=== PATIENT | female | born 1995 | race Caucasian/White ===

== ENCOUNTER → 2018-05-26 10:32 | Outpatient (CLI) | payer OTHER, MEDICAID, SELFPAY ==
[2018-05-26 12:35] LABS: Cholesterol 222 mg/dL (140-199); HDL Cholesterol 33 mg/dL (40-60); LDL Cholesterol Calculated 163 mg/dL (<100); Triglycerides 130 mg/dL (35-150)
== END ==
PROVIDERS: PCP Family Medicine; Visit Provider Family Medicine
DX: E78.5 Hyperlipidemia, unspecified (principal)
CPT/HCPCS: 36415; 80061

== ENCOUNTER → 2018-09-26 09:08 | Outpatient (CLI) | payer OTHER, MEDICAID, SELFPAY ==
[2018-09-26 10:39] LABS: Alanine Aminotransferase 31 IU/L (9-52); Albumin 4.2 g/dL (3.5-5.0); Albumin Globulin Ratio 1.2 (1.0-2.8); Alkaline Phosphatase 73 U/L (38-126); Aspartate Aminotransferase 31 IU/L (14-36); BUN Creatinine Ratio 13.8 (6-22); Bilirubin Total 0.3 mg/dL (0.2-1.3); Blood Urea Nitrogen 11 mg/dL (7-17); Calcium 9.4 mg/dL (8.4-10.2); Carbon Dioxide 25 mmol/L (22-32); Chloride 102 mmol/L (98-107); Cholesterol 149 mg/dL (140-199); Estimated Glomerular Filt Rate > 60.0 mL/min (>60); Globulin 3.6 g/dL (1.7-4.1); Glucose 83 mg/dL (70-100); HDL Cholesterol 31 mg/dL (40-60); HEMOLYSIS < 15 (0-50); LDL Cholesterol Calculated 97 mg/dL (<100); Potassium 4.3 mmol/L (3.4-5.1); Sodium 138 mmol/L (137-145); Total Protein 7.8 g/dL (6.3-8.2); Triglycerides 104 mg/dL (35-150)
== END ==
PROVIDERS: PCP Family Medicine; Visit Provider Family Medicine
DX: E78.00 Pure hypercholesterolemia, unspecified (principal); Z51.81 Encounter for therapeutic drug level monitoring; Z13.220 Encounter for screening for lipoid disorders
CPT/HCPCS: 36415; 80053; 80061

== ENCOUNTER → 2019-03-29 09:58 | Outpatient (CLI) | payer OTHER, MEDICAID, SELFPAY ==
[2019-03-29 10:59] LABS: Alanine Aminotransferase 28 IU/L (9-52); Albumin 4.3 g/dL (3.5-5.0); Albumin Globulin Ratio 1.2 (1.0-2.8); Alkaline Phosphatase 77 U/L (38-126); Aspartate Aminotransferase 32 IU/L (14-36); BUN Creatinine Ratio 14.3 (6-22); Bilirubin Total 0.5 mg/dL (0.2-1.3); Blood Urea Nitrogen 10 mg/dL (7-17); Calcium 9.5 mg/dL (8.4-10.2); Carbon Dioxide 25 mmol/L (22-32); Chloride 103 mmol/L (98-107); Cholesterol 162 mg/dL (140-199); Estimated Glomerular Filt Rate > 60.0 mL/min (>60); Globulin 3.7 g/dL (1.7-4.1); Glucose 82 mg/dL (70-100); HDL Cholesterol 34 mg/dL (40-60); HEMOLYSIS < 15 (0-50); LDL Cholesterol Calculated 104 mg/dL (<100); Potassium 4.2 mmol/L (3.4-5.1); Sodium 141 mmol/L (137-145); Triglycerides 118 mg/dL (35-150)
== END ==
PROVIDERS: PCP Family Medicine; Visit Provider Family Medicine
DX: E78.5 Hyperlipidemia, unspecified (principal)
CPT/HCPCS: 36415; 80053; 80061

== ENCOUNTER → 2019-04-17 16:00 | Outpatient (CLI) | payer OTHER, MEDICAID, SELFPAY | PROVIDERS: PCP Family Medicine; Visit Provider Physician Assistant | DX: J02.9 Acute pharyngitis, unspecified (principal) | CPT/HCPCS: 87070 ==

== ENCOUNTER → 2019-11-22 09:36 | Outpatient (CLI) | payer OTHER, MEDICAID, SELFPAY ==
[2019-11-22 10:36] LABS: Cholesterol 161 mg/dL (140-199); HDL Cholesterol 31 mg/dL (40-60); LDL Cholesterol Calculated 99 mg/dL (<100); Triglycerides 154 mg/dL (35-150)
[2019-11-22 11:07] LABS: TSH w/ Reflex to FT4 1.33 uIU/mL (0.47-4.68)
== END ==
PROVIDERS: PCP Nurse Practitioner Family; Referring Provider Nurse Practitioner Family; Visit Provider Nurse Practitioner Family
DX: E66.9 Obesity, unspecified (principal); E78.5 Hyperlipidemia, unspecified; R63.5 Abnormal weight gain
CPT/HCPCS: 36415; 80061; 84443

== ENCOUNTER → 2020-05-02 10:40 | Outpatient (CLI) | payer OTHER, MEDICAID, SELFPAY ==
[2020-05-02 11:40] LABS: Hematocrit 40.9 % (36-46); Hemoglobin 13.6 g/dL (12.0-16.0); Mean Corpuscular HGB Conc 33.2 % (30-36); Mean Corpuscular Hemoglobin 29.4 PG (26-34); Mean Corpuscular Volume 88.5 fL (80-100); Platelet Count 333 X10^3/uL (150-400); Red Blood Cell Count 4.62 X10^6/uL (4.0-5.2); Red Cell Distribution Width 13.2 % (11.6-14.8)
[2020-05-02 11:54] LABS: Alanine Aminotransferase 38 IU/L (<35); Albumin 4.2 g/dL (3.5-5.0); Albumin Globulin Ratio 1.2 (1.0-2.8); Alkaline Phosphatase 87 U/L (38-126); Aspartate Aminotransferase 41 IU/L (14-36); BUN Creatinine Ratio 16.2 (6-22); Bilirubin Total 0.7 mg/dL (0.2-1.3); Blood Urea Nitrogen 11 mg/dL (7-17); Calcium 9.1 mg/dL (8.4-10.2); Carbon Dioxide 25 mmol/L (22-32); Chloride 103 mmol/L (98-107); Estimated Glomerular Filt Rate > 60.0 mL/min (>60); Globulin 3.4 g/dL (1.7-4.1); Glucose 78 mg/dL (70-100); HEMOLYSIS < 15 (0-50); Potassium 3.8 mmol/L (3.4-5.1); Sodium 137 mmol/L (137-145); Total Protein 7.6 g/dL (6.3-8.2)
[2020-05-03 18:12] LABS: Deamidated Gliadin Ab IgA 2 units (0-19); Deamidated Gliadin Ab IgG 7 units (0-19); Immunoglobulin A,Qn 165 mg/dL (87-352); t-Transglutaminase IgA <2 U/mL (0-3)
== END ==
PROVIDERS: PCP Nurse Practitioner Family; Referring Provider Nurse Practitioner Family; Visit Provider Nurse Practitioner Family
DX: R19.7 Diarrhea, unspecified (principal)
CPT/HCPCS: 36415; 80053; 82784; 83516; 85027

== ENCOUNTER → 2020-05-06 12:03 | Outpatient (CLI) | payer OTHER, MEDICAID, SELFPAY ==
--- NOTE | 2020-05-06 12:04 | DI.US.S_ITS ---
PROCEDURE: US EXTREMITY NONVASC LOWER LT INDICATIONS: LEFT HIP LUMP TECHNIQUE: Real-time scanning was performed of the left hip , with image documentation. COMPARISON: None. FINDINGS: 1.7 x 1.0 x 1.7 cm echogenic solid soft tissue mass corresponding to the palpable abnormality. No vascularity. IMPRESSION: Possible soft tissue lipoma; however differential diagnosis would include both benign and malignant etiologies. If indicated, soft tissue MRI could be performed for further assessment. Dictated by: Elliott Mensah [facility] Interpreted: Dennys Atkins MD on 05/06/2020 at 17:38 Approved by: Dennys Atkins M.D. on 05/06/2020 at 18:12
== END ==
PROVIDERS: PCP Nurse Practitioner Family; Referring Provider Nurse Practitioner Family; Visit Provider Nurse Practitioner Family
DX: R22.2 Localized swelling, mass and lump, trunk (principal)
CPT/HCPCS: 76882

== ENCOUNTER → 2020-05-23 11:38 | Outpatient (CLI) | payer OTHER, MEDICAID, SELFPAY ==
[2020-05-23 12:57] LABS: Alanine Aminotransferase 35 IU/L (<35); Albumin 4.2 g/dL (3.5-5.0); Albumin Globulin Ratio 1.3 (1.0-2.8); Alkaline Phosphatase 93 U/L (38-126); Aspartate Aminotransferase 38 IU/L (14-36); Bilirubin Total 0.4 mg/dL (0.2-1.3); Bilirubin Unconjugated 0.3 mg/dL (0.0-1.1); Globulin 3.2 g/dL (1.7-4.1); HEMOLYSIS < 15 (0-50); Total Protein 7.4 g/dL (6.3-8.2)
[2020-05-26 06:35] LABS: Almond IgE <0.10 kU/L (Class 0); Cashew Nut IgE <0.10 kU/L (Class 0); Codfish Allergy IgE < 0.10 kU/L (Class 0); Egg White IgE <0.10 kU/L (Class 0); Hazelnut IgE <0.10 kU/L (Class 0); Milk IgE <0.10 kU/L (Class 0); Peanut IgE <0.10 kU/L (Class 0); Salmon Allergy IgE < 0.10 kU/L (Class 0); Scallop Allergy IgE < 0.10 kU/L (Class 0); Sesame seed Allergy IgE < 0.10 kU/L (Class 0); Shrimp IgE <0.10 kU/L (Class 0); Soybean IgE <0.10 kU/L (Class 0); Tuna Allergy IgE < 0.10 kU/L (Class 0); Walnut IgE <0.10 kU/L (Class 0); Wheat Allergy IgE < 0.10 kU/L (Class 0)
== END ==
PROVIDERS: PCP Nurse Practitioner Family; Referring Provider Nurse Practitioner Family; Visit Provider Nurse Practitioner Family
DX: R74.8 Abnormal levels of other serum enzymes (principal)
CPT/HCPCS: 36415; 80076; 86003

== ENCOUNTER → 2020-06-04 10:19 | Outpatient (CLI) | payer OTHER, MEDICAID, SELFPAY ==
--- NOTE | 2020-06-04 10:20 | DI.US.S_ITS ---
PROCEDURE: US ABDOMEN COMPLETE INDICATIONS: ELEVATED LIVER ENZYMES TECHNIQUE: Real-time scanning was performed of the abdominal and retroperitoneal organs, with image documentation. COMPARISON: None. FINDINGS: Liver: Numerous target like masses can be seen involving the liver. The largest measure as follows: Right posterior lobe: 4.9 x 4 x 8.2 cm Right posterior lobe: 2.8 x 3.4 x 3.3 cm Left lateral lobe: 2.6 x 2 x 2 x 2 cm. The liver overall demonstrates normal size. The main portal vein is normal in size at 1.5 cm and is patent. Gallbladder: No findings of gallstones or sludge are seen. The gallbladder wall is not thickened, measuring 3 mm or less. No specific pericholecystic fluid is seen. The sonographic Juarez sign is negative. Biliary ducts: Intrahepatic bile ducts are non-dilated. Extrahepatic bile duct caliber measures 5 mm. Normal is 6-7 mm or less in diameter, or 10 mm or less post-cholecystectomy. Pancreas: Visualized portions of the pancreas are sonographically normal. Spleen: Spleen is normal in size and homogeneous in echotexture. Kidneys: Kidneys are normal in size and echotexture. Right kidney measures 11.9 cm long; left kidney measures 12.3 cm long. No hydronephrosis or nephrolithiasis. No solid masses. The renal cortex measures within normal limits for thickness. Aorta: Visualized aorta is normal in caliber at less than 3 cm. Iliacs: Proximal common iliac arteries are normal in caliber at less than 2.5 cm. IVC: Intrahepatic inferior vena cava is patent. Miscellaneous: No free abdominal fluid. IMPRESSION: Target like masses can be seen involving the liver. These are typically seen in patients with metastatic disease. However, in the seen patient, the clinical significance of these is uncertain. Please correlate with a prior history of neoplasm. For further evaluation, a dedicated liver MRI (without and with contrast) is suggested (assuming that there is no contraindication to MRI). Dictated by: Bernardino Galvez M.D. on 06/04/2020 at 11:56 Approved by: Bernardino Galvez M.D. on 06/04/2020 at 11:58
[2020-06-05 09:36] LABS: HBsAg Screen Negative (Negative); Hepatitis A Antibody IgM Negative (Negative); Hepatitis B Core Antibody IgM Negative (Negative); Hepatitis C Antibody <0.1 s/co ratio (0.0-0.9)
[2020-06-06 10:12] LABS: ANA Screen, IFA Negative (.)
[2020-06-08 16:13] LABS: Smooth Muscle Antibody 5 Units (0-19)
== END ==
PROVIDERS: PCP Nurse Practitioner Family; Referring Provider Nurse Practitioner Family; Visit Provider Nurse Practitioner Family
DX: R74.8 Abnormal levels of other serum enzymes (principal); K76.9 Liver disease, unspecified
CPT/HCPCS: 36415; 76700; 80074; 83516; 86038

== ENCOUNTER → 2020-06-13 12:10 | Outpatient (CLI) | payer OTHER, MEDICAID, SELFPAY ==
[2020-06-13 13:50] LABS: Carcinoembryonic Antigen 2.1 ng/mL (0.1-3.0)
[2020-06-14 06:46] LABS: Alpha Fetoprotein 1.7 ng/mL (0.0-8.3); Cancer (Carbohydrate) Ag 19-9 10 U/mL (0-35)
== END ==
PROVIDERS: PCP Nurse Practitioner Family; Referring Provider Nurse Practitioner Family; Visit Provider Nurse Practitioner Family
DX: K76.9 Liver disease, unspecified (principal)
CPT/HCPCS: 36415; 82105; 82378; 86301

== ENCOUNTER → 2020-06-19 09:45 | Outpatient (CLI) | payer OTHER, MEDICAID, SELFPAY ==
--- NOTE | 2020-06-19 09:46 | DI.MRI.S_ITS ---
PROCEDURE: MR ABDOMEN WO/W CON INDICATIONS: liver lesions, abnormal US TECHNIQUE: Coronal HASTE, axial 2D FLASH in- and [id number]; axial breath-hold T2 FSE. Dynamic axial VIBE during the administration of contrast; post-contrast coronal VIBE or 2D FLASH with fat saturation from the hepatic dome to the iliac crests. Optional diffusion weighted imaging and ADC may be performed. COMPARISON: [facility], US, US ABDOMEN COMPLETE, 06/04/2020, 10:35. FINDINGS: Image quality: Excellent. Lung bases: No basal pleural effusions. Heart size is normal. Solid organs: Multiple oval slightly lobulated T2 hyperintense mass lesions are demonstrated throughout the right and left hepatic lobes these include a metals sales representative mass anteriorly in segment 8 measuring up to 4.2 x 4.0 cm. The mass lesions demonstrate hypervascular enhancement following contrast administration with persistent hypervascularity on delayed images. The exception is a mass in the posterior right hepatic lobe primarily in segment 7 which demonstrates a peripheral thin T2 hyperintense rim with heterogeneous predominantly T2 hypointense signal internally. This measures up to 5.8 x 5.2 cm in transverse dimension. Following contrast administration, this demonstrates hypervascular internal enhancement on the arterial phase with internal washout on the portal venous and delayed phases. There is an enhancing capsule on the portal venous and delayed phases. Small linear filling defects are demonstrated within the right portal vein suggestive of partial thrombosis. Gallbladder appears within normal limits without gallstones. Biliary system is non dilated. Pancreas is normal in morphology. Spleen is normal in size and enhancement. No adrenal nodules. Both kidneys demonstrate normal size and enhancement, without hydronephrosis. Nodes and vessels: No retroperitoneal or mesenteric adenopathy by size criteria. Aorta and inferior vena cava are normal in size. Bowel and peritoneum: Visualized bowel loops are normal in caliber. No free fluid. Bones and soft tissues: No ventral hernias. Bone marrow is normal in overall signal. IMPRESSION: 1. Multiple hepatic mass lesions demonstrated throughout the right and left lobes. The majority demonstrate T2 hyperintensity with hypervascular enhancement which persist on delayed images. Given patient's age, the findings likely represent multiple hepatic adenomas possibly related to oral contraceptive use. The differential includes hemangiomas or focal nodular hyperplasia although the imaging appearance is less typical. Correlation is recommended with clinical history. 2. Large mass in segment 7 demonstrates heterogeneous hypointense signal internally on T2 as well as washout on portal venous and delayed phases following contrast administration with an enhancing pseudocapsule. The differential includes malignant transformation of a hepatic adenoma to hepatocellular carcinoma versus sequelae of an infarcted adenoma given suspected thrombus within the right portal vein. The mass is amenable to percutaneous imaging guided biopsy. 3. Small linear filling defects within the right portal vein suggestive of nonocclusive thrombus. Dictated by: John Do M.D. on 06/19/2020 at 10:38 Approved by: John Do M.D. on 06/19/2020 at 11:05
== END ==
PROVIDERS: PCP Nurse Practitioner Family; Referring Provider Nurse Practitioner Family; Visit Provider Nurse Practitioner Family
DX: K76.9 Liver disease, unspecified (principal); R93.89 Abnormal findings on diagnostic imaging of other specified body structures
CPT/HCPCS: 74183

== ENCOUNTER → 2020-08-01 11:25 | Outpatient (CLI) | payer OTHER, MEDICAID, SELFPAY ==
[2020-08-01 12:06] LABS: Hematocrit 41.9 % (36-46); Hemoglobin 13.7 g/dL (12.0-16.0); Mean Corpuscular HGB Conc 32.7 % (30-36); Mean Corpuscular Hemoglobin 28.7 PG (26-34); Mean Corpuscular Volume 87.8 fL (80-100); Platelet Count 279 X10^3/uL (150-400); Red Blood Cell Count 4.78 X10^6/uL (4.0-5.2); Red Cell Distribution Width 13.2 % (11.6-14.8); White Blood Cell Count 6.6 X10^3/uL (4.5-11.0)
[2020-08-01 12:44] LABS: Alanine Aminotransferase 99 IU/L (<35); Albumin 4.6 g/dL (3.5-5.0); Albumin Globulin Ratio 1.5 (1.0-2.8); Alkaline Phosphatase 109 U/L (38-126); Aspartate Aminotransferase 65 IU/L (14-36); BUN Creatinine Ratio 18.9 (6-22); Bilirubin Total 0.7 mg/dL (0.2-1.3); Blood Urea Nitrogen 14 mg/dL (7-17); Calcium 9.7 mg/dL (8.4-10.2); Carbon Dioxide 28 mmol/L (22-32); Chloride 103 mmol/L (98-107); Cholesterol 142 mg/dL (140-199); Estimated Glomerular Filt Rate > 60.0 mL/min (>60); Glucose 84 mg/dL (70-100); HDL Cholesterol 38 mg/dL (40-60); HEMOLYSIS < 15 (0-50); LDL Cholesterol Calculated 89 mg/dL (<100); Potassium 4.2 mmol/L (3.4-5.1); Sodium 139 mmol/L (137-145); Total Protein 7.6 g/dL (6.3-8.2); Triglycerides 77 mg/dL (35-150)
== END ==
PROVIDERS: PCP Nurse Practitioner Family; Referring Provider Nurse Practitioner Family; Visit Provider Nurse Practitioner Family
DX: Z00.00 Encounter for general adult medical examination without abnormal findings (principal); E78.5 Hyperlipidemia, unspecified
CPT/HCPCS: 36415; 80053; 80061; 85027

== ENCOUNTER → 2020-08-24 14:09 | Outpatient (CLI) | payer OTHER, MEDICAID, SELFPAY ==
[2020-08-24 15:54] LABS: COVID19 -Nasal RAPID Negative (Negative)
== END ==
PROVIDERS: PCP Nurse Practitioner Family; Visit Provider Physician Assistant
DX: Z20.822 Contact with and (suspected) exposure to COVID-19 (principal)
CPT/HCPCS: 87635

== ENCOUNTER → 2020-11-15 17:32 | Outpatient (CLI) | payer OTHER, MEDICAID, SELFPAY ==
--- NOTE | 2020-11-15 17:33 | DI.MRI.S_ITS ---
PROCEDURE: MR ABDOMEN WO CON INDICATIONS: monitor liver lesions TECHNIQUE: Coronal and axial HASTE, axial 2-D FLASH in- and [id number], axial Higgins, restricted diffusion hepatic dome to the iliac crests. No IV contrast administered. Patient reports allergy to gadolinium. COMPARISON: [facility], MR, MR ABDOMEN WO/W CON, 06/19/2020, 10:04. [facility], US, US ABDOMEN COMPLETE, 06/04/2020, 10:35. FINDINGS: Image quality: Excellent. Solid organs: Liver is normal in overall size. Several mildly T2 hyperintense hepatic lesions. No restricted diffusion, intrinsic T1 hypointensity. For example: Segment 4A at the dome measuring 3.2 x 2.3 cm, (04/01), previously 4.4 x 3.4 cm on 06/19/2020. Segment 7 measuring 2.6 x 1.8 cm, (04/12), previously 3.3 x 3.1 cm. Segment 6 measuring 1.4 x 1.2 cm, (04/24), previously 1.9 x 1.7 cm. No new lesion seen. Gallbladder is decompressed. Biliary system is non dilated. Pancreas is normal in morphology. Spleen is normal in size. No adrenal nodule. Both kidneys are normal in size, without hydronephrosis. Nodes and vessels: No retroperitoneal or mesenteric adenopathy by size criteria. Aorta and inferior vena cava are normal in size. Bowel and peritoneum: Unenhanced bowel loops are normal in caliber. No free fluid. Lung bases: No basal pleural effusions. Heart size is normal. Bones and soft tissues: No ventral hernias. Bone marrow is of normal overall signal. IMPRESSION: 1. Several mildly T2 hyperintense hepatic lesions demonstrate interval decrease in size compared to May 2020. Differential diagnosis remains broad for these lesions and these could represent adenomas. No new lesion seen. 2. No biliary ductal dilatation. No free fluid. Dictated by: Fadi Gil M.D. on 11/18/2020 at 8:38 Approved by: Fadi Gil M.D. on 11/18/2020 at 8:55
== END ==
PROVIDERS: PCP Nurse Practitioner Family; Referring Provider Nurse Practitioner Family; Visit Provider Nurse Practitioner Family
DX: K76.9 Liver disease, unspecified (principal)
CPT/HCPCS: 74181

== ENCOUNTER → 2020-11-18 15:29 | Outpatient (CLI) | payer OTHER, MEDICAID, SELFPAY ==
[2020-11-18 16:41] LABS: Alanine Aminotransferase 25 IU/L (<35); Albumin 4.4 g/dL (3.5-5.0); Albumin Globulin Ratio 1.4 (1.0-2.8); Alkaline Phosphatase 85 U/L (38-126); Aspartate Aminotransferase 32 IU/L (14-36); BUN Creatinine Ratio 16.1 (6-22); Bilirubin Total 0.4 mg/dL (0.2-1.3); Bilirubin Unconjugated 0.3 mg/dL (0.0-1.1); Blood Urea Nitrogen 10 mg/dL (7-17); Carbon Dioxide 27 mmol/L (22-32); Chloride 103 mmol/L (98-107); Estimated Glomerular Filt Rate > 60.0 mL/min (>60); Globulin 3.1 g/dL (1.7-4.1); Glucose 85 mg/dL (70-100); HEMOLYSIS 23 (0-50); Sodium 140 mmol/L (137-145); Total Protein 7.5 g/dL (6.3-8.2)
[2020-11-18 17:09] LABS: TSH w/ Reflex to FT4 1.79 uIU/mL (0.47-4.68)
== END ==
PROVIDERS: PCP Nurse Practitioner Family; Referring Provider Nurse Practitioner Family; Visit Provider Nurse Practitioner Family
DX: R16.0 Hepatomegaly, not elsewhere classified (principal); R63.4 Abnormal weight loss
CPT/HCPCS: 36415; 80053; 80076; 84443

== ENCOUNTER → 2020-12-16 11:47 | Outpatient (CLI) | payer OTHER, MEDICAID, SELFPAY ==
[2020-12-16 14:57] LABS: HEMOLYSIS < 15 (0-50); Iron 70 ug/dL (37-170)
[2020-12-16 14:59] LABS: Cholesterol 211 mg/dL (140-199); HDL Cholesterol 41 mg/dL (40-60); LDL Cholesterol Calculated 160 mg/dL (<100); Triglycerides 48 mg/dL (35-150)
[2020-12-16 15:09] LABS: Percent Iron Saturation 18 % (15-50); Total Iron Binding Capacity 398 ug/dL (265-497); Transferrin 301 mg/dL (206-381)
[2020-12-16 15:34] LABS: Ferritin 12 ng/mL (6-137)
[2020-12-16 17:12] LABS: Follicle Stimulating Hormone 5.94 mIU/mL
[2020-12-19 08:54] LABS: Percent Free Testosterone 2.84 % (0.50-2.80); Testosterone Free 0.94 ng/dL (0.10-0.85); Testosterone Total 33.2 ng/dL (10.0-55.0)
[2020-12-24 12:33] LABS: Estrogen 124 pg/mL (.)
== END ==
PROVIDERS: PCP Nurse Practitioner Family; Referring Provider Nurse Practitioner Family; Visit Provider Nurse Practitioner Family
DX: L65.9 Nonscarring hair loss, unspecified (principal); L68.9 Hypertrichosis, unspecified; L70.0 Acne vulgaris; Z68.30 Body mass index [BMI] 30.0-30.9, adult
CPT/HCPCS: 36415; 80061; 82672; 82728; 83001; 83002; 83540; 83550; 84402; 84403

== ENCOUNTER → 2021-01-06 12:05 | Outpatient (CLI) | payer OTHER, MEDICAID, SELFPAY ==
--- NOTE | 2021-01-06 12:06 | DI.US.S_ITS ---
PROCEDURE: US PELVIC COMPLETE INDICATIONS: possible PCOS TECHNIQUE: Real-time scanning was performed of the pelvic organs, with image documentation. Additional endovaginal scanning was necessary due to incomplete visualization of the adnexal and endometrial structures by transabdominal scanning. COMPARISON: None. FINDINGS: Uterus: Uterus is normal in size at 2.7 x 4.0 x 3.8 cm. The endometrium measures 2.0 mm in combined thickness. IUD is centrally positioned. Ovaries: The ovaries appear normal in overall volume measuring 2.0 x 4.2 x 1.8 cm on the right and 3.3 x 2.3 x 1.9 cm left. There is no suspicion for presence of ovarian torsion. Note is made of numerous small follicular cysts consistent with the stated suspected clinical history. Other: No pathologic free abdominal or pelvic fluid. IMPRESSION: Findings consistent with polycystic ovarian syndrome bilaterally. No sign of ovarian torsion. Normal appearing uterus with centrally positioned IUD as expected. Dictated by: Tommie Romero M.D. on 01/07/2021 at 16:16 Approved by: Tommie Romero M.D. on 01/07/2021 at 16:18
--- NOTE | 2021-01-06 12:06 | DI.US.S_ITS ---
LIMITED ULTRASOUND OF LEFT BREAST AND AXILLA: 01/06/2021 CLINICAL: Left breast pain. No prior exams were available for comparison. Color flow and real-time ultrasound of the left breast four quadrants and axilla regions were performed. Vargas scale images of the real-time examination were reviewed. No significant abnormalities were seen sonographically in the left axilla or in the region of pain. No abnormality seen screening the breast with ultrasound. IMPRESSION: NEGATIVE There is no sonographic evidence of malignancy. Return to annual mammogram screening schedule is recommended, usually to commence at age 40. Exam findings were conveyed to the patient. Patient is advised to monitor for significant change. Clinical follow-up as needed. This exam was interpreted at Station ID: [id number]. Electronically Signed By: Fadi Gil M.D. [facility] [place]/:01/06/2021 12:57:21 letter sent: Normal Exam Ultrasound BI-RADS: 1 Negative
== END ==
PROVIDERS: PCP Nurse Practitioner Family; Referring Provider Nurse Practitioner Family; Visit Provider Nurse Practitioner Family
DX: N64.4 Mastodynia (principal); N83.02 Follicular cyst of left ovary; N83.01 Follicular cyst of right ovary; R23.4 Changes in skin texture; L65.9 Nonscarring hair loss, unspecified; L68.9 Hypertrichosis, unspecified; L70.0 Acne vulgaris; Z97.5 Presence of (intrauterine) contraceptive device
CPT/HCPCS: 76642; 76830; 76856

== ENCOUNTER → 2021-01-28 10:38 | Outpatient (CLI) | payer OTHER, MEDICAID, SELFPAY ==
[2021-01-28 12:10] LABS: C-Reactive Protein Quant 1.9 mg/dL (<1.0)
[2021-01-28 12:12] LABS: Erythrocyte Sedimentation Rate 9 MM/HR (0-20)
[2021-01-29 17:45] LABS: ANA Screen, IFA Negative (.)
== END ==
PROVIDERS: PCP Nurse Practitioner Family; Referring Provider Nurse Practitioner Family; Visit Provider Nurse Practitioner Family
DX: R63.4 Abnormal weight loss (principal)
CPT/HCPCS: 36415; 85651; 86038; 86140

== ENCOUNTER → 2021-02-28 15:28 | Outpatient (CLI) | payer OTHER, MEDICAID, SELFPAY ==
[2021-02-28 16:46] LABS: HEMOLYSIS < 15 (0-50); Iron 49 ug/dL (37-170)
[2021-02-28 16:50] LABS: Alanine Aminotransferase 24 IU/L (<35); Albumin 4.6 g/dL (3.5-5.0); Albumin Globulin Ratio 1.4 (1.0-2.8); Alkaline Phosphatase 85 U/L (38-126); Aspartate Aminotransferase 30 IU/L (14-36); BUN Creatinine Ratio 23.3 (6-22); Bilirubin Total 0.4 mg/dL (0.2-1.3); Blood Urea Nitrogen 14 mg/dL (7-17); C-Reactive Protein Quant 0.5 mg/dL (<1.0); Calcium 9.9 mg/dL (8.4-10.2); Carbon Dioxide 28 mmol/L (22-32); Chloride 102 mmol/L (98-107); Cholesterol 144 mg/dL (140-199); Estimated Glomerular Filt Rate > 60.0 mL/min (>60); Globulin 3.3 g/dL (1.7-4.1); Glucose 82 mg/dL (70-100); HDL Cholesterol 41 mg/dL (40-60); HEMOLYSIS < 15 (0-50); LDL Cholesterol Calculated 86 mg/dL (<100); Potassium 3.7 mmol/L (3.4-5.1); Sodium 140 mmol/L (137-145); Total Protein 7.9 g/dL (6.3-8.2); Triglycerides 86 mg/dL (35-150)
[2021-02-28 16:56] LABS: Percent Iron Saturation 14 % (15-50); Total Iron Binding Capacity 354 ug/dL (265-497); Transferrin 251 mg/dL (206-381)
[2021-02-28 17:23] LABS: Ferritin 12 ng/mL (6-137)
== END ==
PROVIDERS: PCP Nurse Practitioner Family; Referring Provider Nurse Practitioner Family; Visit Provider Nurse Practitioner Family
DX: E61.1 Iron deficiency (principal); Z00.00 Encounter for general adult medical examination without abnormal findings; E78.01 Familial hypercholesterolemia; R79.82 Elevated C-reactive protein (CRP); K76.9 Liver disease, unspecified
CPT/HCPCS: 36415; 80053; 80061; 82728; 83540; 83550; 86140

== ENCOUNTER → 2021-05-14 12:32 | Outpatient (CLI) | payer OTHER, MEDICAID, SELFPAY ==
[2021-05-14 13:43] LABS: Glucose 76 mg/dL (70-100)
[2021-05-14 17:59] LABS: Vitamin D 25 Hydroxy (D3) 42.2 ng/mL (30.0-100.0)
[2021-05-15 06:40] LABS: Insulin Level Total 3.6 uIU/mL (2.6-24.9)
== END ==
PROVIDERS: PCP Nurse Practitioner Family; Referring Provider Specialist; Visit Provider Specialist
DX: E28.2 Polycystic ovarian syndrome (principal); L65.9 Nonscarring hair loss, unspecified
CPT/HCPCS: 36415; 82306; 82947; 83525

== ENCOUNTER → 2021-09-01 12:16 | Outpatient (CLI) | payer OTHER, MEDICAID, SELFPAY ==
[2021-09-01 12:43] LABS: Hematocrit 41.6 % (36-46); Mean Corpuscular HGB Conc 33.7 % (30-36); Mean Corpuscular Hemoglobin 29.9 PG (26-34); Mean Corpuscular Volume 88.8 fL (80-100); Platelet Count 252 X10^3/uL (150-400); Red Blood Cell Count 4.69 X10^6/uL (4.0-5.2); Red Cell Distribution Width 13.6 % (11.6-14.8)
[2021-09-01 14:01] LABS: HEMOLYSIS < 15 (0-50); Iron 105 ug/dL (37-170)
[2021-09-01 14:07] LABS: Alanine Aminotransferase 19 IU/L (<35); Albumin 4.6 g/dL (3.5-5.0); Albumin Globulin Ratio 1.4 (1.0-2.8); Alkaline Phosphatase 80 U/L (38-126); Aspartate Aminotransferase 26 IU/L (14-36); BUN Creatinine Ratio 14.5 (6-22); Bilirubin Total 0.8 mg/dL (0.2-1.3); Blood Urea Nitrogen 9 mg/dL (7-17); Calcium 9.8 mg/dL (8.4-10.2); Carbon Dioxide 28 mmol/L (22-32); Chloride 103 mmol/L (98-107); Cholesterol 134 mg/dL (140-199); Estimated Glomerular Filt Rate > 60.0 mL/min (>60); Globulin 3.2 g/dL (1.7-4.1); Glucose 82 mg/dL (70-100); HDL Cholesterol 43 mg/dL (40-60); HEMOLYSIS < 15 (0-50); LDL Cholesterol Calculated 81 mg/dL (<100); Sodium 139 mmol/L (137-145); Total Protein 7.8 g/dL (6.3-8.2); Triglycerides 52 mg/dL (35-150)
[2021-09-01 14:16] LABS: Percent Iron Saturation 29 % (15-50); Total Iron Binding Capacity 363 ug/dL (265-497); Transferrin 269 mg/dL (206-381)
[2021-09-01 14:38] LABS: Ferritin 19 ng/mL (6-137)
== END ==
PROVIDERS: PCP Nurse Practitioner Family; Referring Provider Nurse Practitioner Family; Visit Provider Nurse Practitioner Family
DX: E28.2 Polycystic ovarian syndrome (principal); E78.5 Hyperlipidemia, unspecified; K76.9 Liver disease, unspecified; Z13.6 Encounter for screening for cardiovascular disorders; Z00.00 Encounter for general adult medical examination without abnormal findings
CPT/HCPCS: 36415; 80053; 80061; 82728; 83540; 83550; 85027

== ENCOUNTER → 2021-09-25 17:44 | Outpatient (CLI) | payer OTHER, MEDICAID, SELFPAY ==
--- NOTE | 2021-09-25 17:48 | DI.MRI.S_ITS ---
PROCEDURE: MR ABDOMEN WO CON INDICATIONS: monitoring, liver disease, unspecified TECHNIQUE: Coronal and axial HASTE through the abdomen, axial 2-D FLASH in- and [id number], Higgins vibe noncontrast T1, and restricted diffusion sequences. No IV contrast was administered due to the reported history of gadolinium allergy. COMPARISON: [facility], MR, MR ABDOMEN WO/W CON, 06/19/2020, 10:04. [facility], MR, MR ABDOMEN WO CON, 11/15/2020, 17:40. FINDINGS: Image quality: Excellent. Abdominal organs: Liver is normal in size. There are multiple (greater than 4) liver lesions. These demonstrate mild T2 hyperintense signal and no restricted diffusion. For example: -segment 4A at the dome 1.8 x 1.4 cm, (4/6), previously 3.2 x 2.3 cm, and more remotely 4.4 x 3.4 cm on 06/19/2020. -segment 7 measuring 2.2 x 1.2 cm, (4/10), previously 2.6 x 1.8 cm, and more remotely 3.3 x 3.1 cm. -segment 6 measuring 1.1 x 1 cm, (4/60), previously 1.4 x 1.2 cm, and more remotely 1.9 x 1.7 cm. No new lesions identified. Gallbladder is decompressed. No intra or extrahepatic biliary ductal dilatation demonstrated. The pancreatic duct is not dilated. No pancreatic signal abnormality identified. Spleen is normal in size. No adrenal nodules. Both kidneys are normal in size, without hydronephrosis. Nodes and vessels: No retroperitoneal or mesenteric adenopathy by size criteria. Aorta and inferior vena cava are normal in size. Bowel and peritoneum: Unenhanced bowel loops are normal in caliber. No free fluid. Lung bases: No basal pleural effusions. Heart size is normal. Bones and soft tissues: No ventral hernias. Bone marrow is of normal overall signal. IMPRESSION: Exam is somewhat limited in the absence of IV contrast. 1. Continued interval decrease in size in the hepatic lesions. No new lesions identified. 2. No biliary or pancreatic ductal dilatation. 3. No ascites. Dictated by: Fadi Gil M.D. on 09/26/2021 at 8:50 Approved by: Fadi Gil M.D. on 09/26/2021 at 9:02
== END ==
PROVIDERS: PCP Nurse Practitioner Family; Referring Provider Nurse Practitioner Family; Visit Provider Nurse Practitioner Family
DX: K76.9 Liver disease, unspecified (principal)
CPT/HCPCS: 74181

== ENCOUNTER → 2022-09-08 11:37 | Outpatient (CLI) | payer OTHER, MEDICAID, SELFPAY ==
[2022-09-08 12:03] LABS: Add Manual Diff / Slide Review NO; Basophils Absolute Auto 0 /uL (0-100); Basophils Percent Auto 0.6 % (0-2); Eosinophils Absolute Auto 100 /uL (0-450); Eosinophils Percent Auto 1.8 % (2-4); Hematocrit 40.1 % (36-46); Hemoglobin 13.6 g/dL (12.0-16.0); Lymphocytes Absolute Auto 1900 /uL (1100-4500); Lymphocytes Percent Auto 31.2 % (25-40); Mean Corpuscular HGB Conc 33.8 % (30-36); Mean Corpuscular Hemoglobin 30.1 PG (26-34); Mean Corpuscular Volume 89.1 fL (80-100); Monocytes Absolute Auto 500 /uL (0-900); Monocytes Percent Auto 8.8 % (3-14); Neutrophils Absolute Auto 3500 /uL (1500-7000); Neutrophils Percent Auto 57.6 % (50-75); Platelet Count 272 X10^3/uL (150-400); Red Blood Cell Count 4.51 X10^6/uL (4.0-5.2); Red Cell Distribution Width 13.6 % (11.6-14.8)
[2022-09-08 12:19] LABS: Alanine Aminotransferase 18 IU/L (<35); Albumin 4.6 g/dL (3.5-5.0); Albumin Globulin Ratio 1.3 (1.0-2.8); Alkaline Phosphatase 62 U/L (38-126); Aspartate Aminotransferase 27 IU/L (14-36); BUN Creatinine Ratio 17.7 (6-22); Bilirubin Total 0.9 mg/dL (0.2-1.3); Blood Urea Nitrogen 11 mg/dL (7-17); Calcium 9.1 mg/dL (8.4-10.2); Carbon Dioxide 26 mmol/L (22-32); Chloride 102 mmol/L (98-107); Cholesterol 187 mg/dL (140-199); Estimated Glomerular Filt Rate > 60 mL/min (>60); Globulin 3.5 g/dL (1.7-4.1); Glucose 79 mg/dL (70-100); HDL Cholesterol 48 mg/dL (40-60); HEMOLYSIS < 15 (0-50); LDL Cholesterol Calculated 131 mg/dL (<100); Potassium 3.6 mmol/L (3.4-5.1); Sodium 139 mmol/L (137-145); Total Protein 8.1 g/dL (6.3-8.2); Triglycerides 42 mg/dL (35-150)
[2022-09-08 12:51] LABS: TSH w/ Reflex to FT4 0.99 uIU/mL (0.47-4.68)
== END ==
PROVIDERS: PCP Registered Nurse Diabetes Educator; Referring Provider Registered Nurse Diabetes Educator; Visit Provider Registered Nurse Diabetes Educator
DX: E28.2 Polycystic ovarian syndrome (principal); E78.01 Familial hypercholesterolemia; K76.9 Liver disease, unspecified; R74.8 Abnormal levels of other serum enzymes
CPT/HCPCS: 80053; 80061; 84443; 85025

== ENCOUNTER → 2024-04-21 12:55 | Outpatient (CLI) | payer OTHER, SELFPAY ==
[2024-04-21 15:01] LABS: Hematocrit 40.9 % (36-46); Hemoglobin 14.1 g/dL (12.0-16.0); Mean Corpuscular HGB Conc 34.4 % (30-36); Mean Corpuscular Hemoglobin 30.3 PG (26-34); Mean Corpuscular Volume 88.2 fL (80-100); Platelet Count 373 X10^3/uL (150-400); Red Blood Cell Count 4.64 X10^6/uL (4.0-5.2); Red Cell Distribution Width 13.3 % (11.6-14.8); White Blood Cell Count 5.8 X10^3/uL (4.5-11.0)
[2024-04-21 15:19] LABS: Alanine Aminotransferase 21 IU/L (<35); Albumin 4.4 g/dL (3.5-5.0); Albumin Globulin Ratio 1.3 (1.0-2.8); Alkaline Phosphatase 56 U/L (38-126); Aspartate Aminotransferase 30 IU/L (14-36); BUN Creatinine Ratio 17.2 (6-22); Bilirubin Total 0.8 mg/dL (0.2-1.3); Blood Urea Nitrogen 11 mg/dL (7-17); Calcium 9.5 mg/dL (8.4-10.2); Carbon Dioxide 27 mmol/L (22-32); Chloride 103 mmol/L (98-107); Cholesterol 186 mg/dL (140-199); Estimated Glomerular Filt Rate > 60 mL/min (>60); Globulin 3.3 g/dL (1.7-4.1); Glucose 78 mg/dL (70-100); HDL Cholesterol 47 mg/dL (40-60); HEMOLYSIS < 15 (0-50); LDL Cholesterol Calculated 130 mg/dL (<100); Sodium 137 mmol/L (137-145); Total Protein 7.7 g/dL (6.3-8.2); Triglycerides 45 mg/dL (35-150)
[2024-04-21 15:47] LABS: TSH w/ Reflex to FT4 0.89 uIU/mL (0.47-4.68)
== END ==
PROVIDERS: PCP Registered Nurse Diabetes Educator; Referring Provider Registered Nurse Diabetes Educator; Visit Provider Registered Nurse Diabetes Educator
DX: E61.1 Iron deficiency (principal); D13.4 Benign neoplasm of liver; R16.0 Hepatomegaly, not elsewhere classified; E78.5 Hyperlipidemia, unspecified; R74.8 Abnormal levels of other serum enzymes
CPT/HCPCS: 36415; 80053; 80061; 84443; 85027

== ENCOUNTER → 2025-05-27 12:59 | Outpatient (CLI) | payer OTHER, SELFPAY ==
[2025-05-27 13:46] LABS: Influenza A - CEPHEID Flu A NEGATIVE (NEGATIVE); Influenza B - CEPHEID Flu B NEGATIVE (NEGATIVE)
[2025-05-27 13:57] LABS: COVID-19 CEPHEID 4-PLEX PCR Negative (Negative)
== END ==
PROVIDERS: PCP Registered Nurse Diabetes Educator; Visit Provider Nurse Practitioner Family
DX: J02.9 Acute pharyngitis, unspecified (principal); R05.1 Acute cough
CPT/HCPCS: 87070; 87637